=== PATIENT | male | born 1965 | race Caucasian/White ===

== ENCOUNTER 2024-03-21 20:13 | Emergency (ER) | payer OTHER, SELFPAY ==
[2024-03-21 20:15] VITALS: BP 143/79
--- NOTE | 2024-03-21 21:07 | ED.GENMED ---
History of Present Illness
General
Chief Complaint: Musculo-Skeletal Complaint
Source: patient
Time Seen by Provider: 03/21/24 20:30
Travel History
Have you had any contact with someone who has COVID-19?: No
Do you have any symptoms of coronavirus? Fever > 100 degrees, chills, cough, shortness of breath, sore throat, loss of taste or smell, muscle aches, or headache?: No
History of Present Illness
History of Present Illness:
Appointment 58-year-old male presenting emergency department for evaluation of left heel pain that radiates towards the midfoot and worse with ambulation. No injuries were noted. Has not attempted anything for pain. Denies any previous concerns.
Past History
Past History
ED Past Medical History: CAD, HTN, Hypercholesterolemia, [place], Seizures and Psychiatric
ED Past Surgical History: Cardiac ([place] 08/2019, Stent)
Patient has exhibited threatening behavior?: No
PSI?: No
Social History
Tobacco: Non-smoker
Alcohol: None
Drug: None
Personal: Single
Living: alone
Employment: Employed (Teacher)
Review of Systems
Review of Systems
All Other Systems: ROS reviewed and negative except as documented in HPI and ROS
Phy Exam
Physical Exam
Physical Exam:
GENERAL: Alert , in no apparent distress
EYE: conjunctiva clear
Head: Normocephalic atraumatic
NECK: Supple,
ENT: mmm.
LUNGS: no acute respiratory distress
NEUROLOGICAL: Alert and oriented
SKIN: Warm and dry, skin intact.
MUSCULOSKELETAL: Left foot/ankle: No obvious deformity, erythema, edema, ecchymosis, abrasions or lacerations. Mild tenderness over the plantar surface of the distal calcaneus extending towards the midfoot. Extremities otherwise warm and
well-perfused.
PSYCH: Normal and appropriate interaction.
Scores
Heart Failure Risk
Heart Failure Risk Score: Not Applicable
Heart Score for Chest Pain Patients
STEMI patient?: Not applicable
Withdrawal Assessment of Alcohol
Withdrawal Assessment Completed?: Not applicable
Course
Orders/Labs/Results
Orders:
Orders
03/21/24 20:18
CR Heel/os Calcis - Left 2 Vw* Urgent
Comment:
Reason For Exam: pain
Foot, Left 3 View [CR Foot - Left Min 3 Views] Urgent
Comment:
Reason For Exam: pain
Vital Signs
Initial and Last Documented VS:
Initial Vital Signs
Temp Pulse Resp BP Pulse Ox
98.1 F 68 18 143/79 97
03/21/24 20:15 03/21/24 20:15 03/21/24 20:15 03/21/24 20:15 03/21/24 20:15
Last Documented Vital Signs
Temp Pulse Resp BP Pulse Ox
98.1 F 68 18 143/79 97
03/21/24 20:15 03/21/24 20:15 03/21/24 20:15 03/21/24 20:15 03/21/24 20:15
MDM/Problems Addressed
Differential Diagnosis Includes:
Plantar fasciitis, osteoarthritis, less concern for fracture
MDM/Problems Addressed:
58-year-old male presenting to the emergency department for evaluation of atraumatic left foot pain x 2 weeks. Symptoms seem to be most suggestive of plantar fasciitis or tendinopathy. X-rays were ordered from triage and shows mild degenerative
changes but no acute fracture. Offered crutches but patient declines. Ice and elevation and information for orthopedics were provided. Stable for discharge home.
*Radiology
Radiology exam reviewed: preliminary read by ED provider (No acute fracture)
*Pulse Oximetry
Patient hypoxic: no
*Critical Care Note
Total Time (30-74mins, 75-104mins- exclusive of procedures): Not Applicable
ED Attending Note
-
Portions of this chart may have been created with voice recognition software.� Occasional wrong word or��sound alike� substitutions may have occurred due to the inherent limitations of voice recognition software.
Discharge Plan
Departure
Patient Disposition: Home (Routine Discharge)
Date of Disposition: 03/21/24
Time of Disposition: 21:07
Patient with high blood pressure during this ER visit?: Yes
Discharge Problem:
Foot pain, left
Instructions: Plantar fasciitis
Prescriptions:
No Action
rabeprazole [AcipHex] 20 MG tablet,delayed release (DR/EC)
20 mg PO DAILY Qty: 30 0RF
mupirocin 2 % ointment
1 applic topical TID Qty: 15 0RF
hydrocortisone 2.5 % cream
1 applic topical TID Qty: 20 0RF
atorvastatin 20 mg Tablet
20 mg PO DAILY
metoprolol succinate 50 mg Tablet Extended Release 24 Hr
50 mg PO DAILY
aspirin [Aspir-81] 81 mg Tablet,Delayed Release (Dr/Ec)
81 mg PO DAILY
Briviact 50 mg Tablet
50 mg PO BID
Briviact 50 mg tablet
50 mg PO BID Qty: 30 1RF
cyclobenzaprine 10 mg tablet
10 mg PO TID PRN (Reason: muscle spasm) Qty: 10 0RF
ibuprofen 600 mg tablet
600 mg PO TID PRN (Reason: Pain) Qty: 10 0RF
Referrals:
Karina Sinclair CRNP [Family Provider] -
Jose Miguel Shah MD [Active] - (Ortho)
Discharge Date and Time
Print Language: CONGOLESE
== END 2024-03-21 21:45 | disposition home or self-care (01) ==
LOC: EMR 20:13
PROVIDERS: EMERGENCY PHYSICIAN Emergency Medicine; FAMILY PHYSICIAN Nurse Practitioner
DX: M79.672 Pain in left foot (principal); I25.10 Atherosclerotic heart disease of native coronary artery without angina pectoris; I10 Essential (primary) hypertension; E78.00 Pure hypercholesterolemia, unspecified; I25.2 Old myocardial infarction; G40.909 Epilepsy, unspecified, not intractable, without status epilepticus; Z95.5 Presence of coronary angioplasty implant and graft
CPT/HCPCS: 99283; 73630; 73650

== ENCOUNTER 2024-07-11 17:25 | Emergency (ER) | payer OTHER, SELFPAY ==
[2024-07-11 17:27] VITALS: BP 159/84
--- NOTE | 2024-07-11 18:52 | ED.MUSCINJ ---
HPI-Injury
General
Chief Complaint: Musculo-Skeletal Complaint
Source: patient
Exam Limitations: none
Time Seen by Provider: 07/11/24 18:40
History of Present Illness-Injury
Initial Injury comments:
59-year-old male presents complaining significant left heel pain. This started about 2 weeks ago was getting a little better with stretches and ibuprofen however today he woke up in significant pain and has not eased off thickly throughout the day
the pain does ease off after the first several steps. He was seen at [facility] x-rays were taken and he was noted to have a bone spur. No known injury. No fevers. The ibuprofen he was prescribed 2 weeks ago was helping somewhat but he
ran out.
Past History
Past History
ED Past Medical History: CAD, HTN, Hypercholesterolemia, [place], Seizures and Psychiatric
ED Past Surgical History: Cardiac ([place] 08/2019, Stent)
Patient has exhibited threatening behavior?: No
PSI?: No
Social History
Tobacco: Non-smoker
Alcohol: None
Drug: None
Personal: Single
Living: alone
Employment: Employed (Teacher)
Phy Exam
Physical Exam
Physical Exam:
General: Well-appearing male no acute respiratory distress
HEENT: Normocephalic atraumatic
Musculoskeletal exam: Left heel tender over the plantar surface of the heel. The posterior aspect of the heel is nontender. Ball the foot is nontender.
Extremities: No cyanosis
Vascular: 2+ dorsalis pedis pulse left foot skin is intact without erythema or swelling
Injury Course
Orders/Labs/Results
Orders:
Orders
07/11/24 18:49
Ortho Boot Left- Treatment ONCE
Short or tall?: Tall
MDM/Problems Addressed
Differential Diagnosis Includes:
Left heel discomfort. X-rays taken at another facility 2 weeks ago consider repeat x-rays today but not indicated given no new trauma. No signs of infectious source. Consider tendinitis versus plantar fasciitis. Will place patient in a boot as
symptoms are not improving with conservative treatment otherwise. Recommend follow-up with foot and ankle specialist. Will also prescribe a round of steroids
*Critical Care Note
Total Time (30-74mins, 75-104mins- exclusive of procedures): Not Applicable
ED Attending Note
-
Portions of this chart may have been created with voice recognition software.� Occasional wrong word or��sound alike� substitutions may have occurred due to the inherent limitations of voice recognition software.
Discharge Plan
Departure
Patient Disposition: Home (Routine Discharge)
Date of Disposition: 07/11/24
Time of Disposition: 18:57
Patient with high blood pressure during this ER visit?: No
Discharge Problem:
Heel pain
Instructions: Muscle and Bone Pain (DC)
Prescriptions:
New
prednisone 10 mg Tablet
See Rx Instructions .ROUTE .COMPLEX Qty: 30 0RF
Rx Instructions:
Take By Mouth:
40 mg daily x3 days, 30 mg daily x3 days,
20 mg daily x3 days, 10 mg daily x3 days.
No Action
rabeprazole [AcipHex] 20 MG tablet,delayed release (DR/EC)
20 mg PO DAILY Qty: 30 0RF
mupirocin 2 % ointment
1 applic topical TID Qty: 15 0RF
hydrocortisone 2.5 % cream
1 applic topical TID Qty: 20 0RF
atorvastatin 20 mg Tablet
20 mg PO DAILY
metoprolol succinate 50 mg Tablet Extended Release 24 Hr
50 mg PO DAILY
aspirin [Aspir-81] 81 mg Tablet,Delayed Release (Dr/Ec)
81 mg PO DAILY
Briviact 50 mg Tablet
50 mg PO BID
Briviact 50 mg tablet
50 mg PO BID Qty: 30 1RF
cyclobenzaprine 10 mg tablet
10 mg PO TID PRN (Reason: muscle spasm) Qty: 10 0RF
ibuprofen 600 mg tablet
600 mg PO TID PRN (Reason: Pain) Qty: 10 0RF
Referrals:
Karina Sinclair CRNP [Family Provider] -
Activity Restrictions/Additional Instructions:
Rest in the boot. Use prednisone as directed. Follow-up with your foot and ankle specialist. Return if worse otherwise
Interventions
Interventions:
*General Assessment Last Done: 07/11/24 17:27
Discharge Date and Time
Print Language: POLISH
== END 2024-07-11 19:38 | disposition home or self-care (01) ==
LOC: EMR 17:25
PROVIDERS: EMERGENCY PHYSICIAN Emergency Medicine; FAMILY PHYSICIAN Nurse Practitioner
DX: M79.672 Pain in left foot (principal); I25.10 Atherosclerotic heart disease of native coronary artery without angina pectoris; I10 Essential (primary) hypertension; E78.00 Pure hypercholesterolemia, unspecified; I25.2 Old myocardial infarction; Z95.5 Presence of coronary angioplasty implant and graft
CPT/HCPCS: 99282

== ENCOUNTER 2024-07-30 14:34 | Emergency (ER) | payer OTHER, SELFPAY ==
[2024-07-30 14:37] VITALS: BP 163/84
--- NOTE | 2024-07-30 14:45 | ED.GENMED ---
ED Provider Triage
<IRA Hunter - Last Filed: 07/30/24 14:48>
-
Patient seen by provider in Triage?: Seen in Triage
Attestation: A medical screening examination has been initiated by a qualified medical provider. Based on the assessment performed at this time, it has been determined that an emergent medical condition may exist and the patient has been informed
that further medical evaluation and possible additional diagnostic testing may be needed.
HPI:
59-year-old male who presents to the ER for evaluation of cold symptoms. Patient started with cold symptoms last week including cough, has lost his voice. Symptoms are not improving. He feels Mildly short of breath . Called pcp who recommended
he come to the ED.
GENERAL: Alert , in no apparent distress
EYE: No visual abnormalities.
NECK: Trachea midline
ENT: No visible abnormalities.
LUNGS: No acute respiratory distress
NEUROLOGICAL: Alert and oriented
SKIN: Skin intact. No visible changes.
MUSCULOSKELETAL: Moving extremities normally
PSYCH: Normal and appropriate interaction.
This is a medical evaluation conducted in person to initiate diagnostic evaluation and provide initial therapeutics. Please see further documentation by the treating clinician.
History of Present Illness
<IRA Hunter - Last Filed: 07/30/24 14:48>
General
Chief Complaint: Cold/Flu/URI Symptoms
Time Seen by Provider: 07/30/24 15:54
<Hi Aguilera PA-C - Last Filed: 07/30/24 16:16>
General
Source: patient
History of Present Illness
History of Present Illness:
59-year-old male with past medical history of seizure disorder, asthma, CAD, hypertension, hyperlipidemia presenting to the emergency department for evaluation of a cough, cold-like symptoms and shortness of breath that began on Saturday, gradually
worsening today with patient attempting to follow-up with primary care provider was recommended to come to the ER instead his PCP could not get patient in for an appointment. Patient denies any fevers, chills, rigors, chest pain, palpitations,
diaphoresis, exertional dyspnea orthopnea. Does note a recent admission at [facility] for a seizure. No known sick contacts, recent travel or recent antibiotics. Patient does note he has been using his inhaler as needed for wheezing/shortness of
breath.
Past History
<IRA Hunter - Last Filed: 07/30/24 14:48>
Past History
ED Past Medical History: CAD, HTN, Hypercholesterolemia, [place], Seizures and Psychiatric
ED Past Surgical History: Cardiac ([place] 08/2019, Stent)
Patient has exhibited threatening behavior?: No
PSI?: No
Social History
Tobacco: Non-smoker
Alcohol: None
Drug: None
Personal: Single
Living: alone
Employment: Employed (Teacher)
Review of Systems
<Hi Aguilera PA-C - Last Filed: 07/30/24 16:16>
Review of Systems
All Other Systems: ROS reviewed and negative except as documented in HPI and ROS
Phy Exam
<Hi Aguilera PA-C - Last Filed: 07/30/24 16:16>
Physical Exam
Physical Exam:
GENERAL: Alert , in no apparent distress, very hoarse voice, intermittent dry cough noted
EYE: conjunctiva clear
NECK: Supple
ENT: o/p clr, mmm.
CARDIAC: Regular rate and rhythm
LUNGS: Clear breath sounds bilaterally, no acute respiratory distress, no wheezes/rales/rhonchi
NEUROLOGICAL: Alert and oriented
SKIN: Warm and dry, skin intact.
MUSCULOSKELETAL: well perfused.
PSYCH: Normal and appropriate interaction.
Scores
<Hi Aguilera PA-C - Last Filed: 07/30/24 16:16>
Heart Failure Risk
Heart Failure Risk Score: Not Applicable
Heart Score for Chest Pain Patients
STEMI patient?: Not applicable
Withdrawal Assessment of Alcohol
Withdrawal Assessment Completed?: Not applicable
Course
<IRA Hunter - Last Filed: 07/30/24 14:48>
Orders/Labs/Results
Orders:
Orders
07/30/24 14:40
Electrocardiogram (*1) Urgent
Reason for Study: Shortness of Breath
CXR2 [CR Chest - 2 Views ] Urgent
Comment:
Reason For Exam: sob
07/30/24 14:41
EKG- Treatment ONCE
07/30/24 14:45
COVID-19 Antigen Urgent
Source: Nasal Swab
Complete Blood Count/With Diff Urgent
Lactic Acid Urgent
NT-proBNP Urgent
Influenza A+B Rapid Molecular Urgent
YENNI Source: Nasal Swab
Specimen Description:
07/30/24 14:46
Comprehensive Metabolic Panel Urgent
Abnormal Lab Results
07/30/24 07/30/24
14:45 14:46
WBC 11.7 H 10^3/uL
(4.8-10.8)
Plt Count 129 L 10^3/uL
(130-400)
MPV 12.6 H fL
(7.4-10.4)
Abs Immat Gran (auto) 0.1 H 10^3/uL
(0-0.05)
Absolute Neuts (auto) 7.7 H 10^3/uL
(1.4-6.5)
Absolute Monos (auto) 1.2 H 10^3/uL
(0.1-0.6)
Lymphocytes % 19.0 L %
(20.5-51.1)
Monocytes % 10.0 H %
(1.7-9.3)
Sodium 133 L mmol/L
(135-145)
Chloride 95 L mmol/L
(98-107)
07/30/24 14:45
07/30/24 14:46
Vital Signs
Initial and Last Documented VS:
Initial Vital Signs
Temp Pulse Resp BP Pulse Ox
98.0 F 64 16 163/84 98
07/30/24 14:37 07/30/24 14:37 07/30/24 14:37 07/30/24 14:37 07/30/24 14:37
Last Documented Vital Signs
Temp Pulse Resp BP Pulse Ox
98.0 F 78 22 145/88 98
07/30/24 14:37 07/30/24 16:09 07/30/24 16:09 07/30/24 16:09 07/30/24 16:09
<Hi Aguilera PA-C - Last Filed: 07/30/24 16:16>
Orders/Labs/Results
Orders:
Orders
07/30/24 14:40
Electrocardiogram (*1) Urgent
Reason for Study: Shortness of Breath
CXR2 [CR Chest - 2 Views ] Urgent
Comment:
Reason For Exam: sob
07/30/24 14:41
EKG- Treatment ONCE
07/30/24 14:45
COVID-19 Antigen Urgent
Source: Nasal Swab
Complete Blood Count/With Diff Urgent
Lactic Acid Urgent
NT-proBNP Urgent
Influenza A+B Rapid Molecular Urgent
YENNI Source: Nasal Swab
Specimen Description:
07/30/24 14:46
Comprehensive Metabolic Panel Urgent
Abnormal Lab Results
07/30/24 07/30/24
14:45 14:46
WBC 11.7 H 10^3/uL
(4.8-10.8)
Plt Count 129 L 10^3/uL
(130-400)
MPV 12.6 H fL
(7.4-10.4)
Abs Immat Gran (auto) 0.1 H 10^3/uL
(0-0.05)
Absolute Neuts (auto) 7.7 H 10^3/uL
(1.4-6.5)
Absolute Monos (auto) 1.2 H 10^3/uL
(0.1-0.6)
Lymphocytes % 19.0 L %
(20.5-51.1)
Monocytes % 10.0 H %
(1.7-9.3)
Sodium 133 L mmol/L
(135-145)
Chloride 95 L mmol/L
(98-107)
07/30/24 14:45
07/30/24 14:46
Vital Signs
Initial and Last Documented VS:
Initial Vital Signs
Temp Pulse Resp BP Pulse Ox
98.0 F 64 16 163/84 98
07/30/24 14:37 07/30/24 14:37 07/30/24 14:37 07/30/24 14:37 07/30/24 14:37
Last Documented Vital Signs
Temp Pulse Resp BP Pulse Ox
98.0 F 78 22 145/88 98
07/30/24 14:37 07/30/24 16:09 07/30/24 16:09 07/30/24 16:09 07/30/24 16:09
<Hi Aguilera PA-C - Last Filed: 07/30/24 16:16>
MDM/Problems Addressed
Differential Diagnosis Includes:
COVID, flu, pneumonia, asthma, bronchitis
MDM/Problems Addressed:
59-year-old male presenting emergency department for evaluation of URI-like symptoms, cough and mild shortness of breath. Attempted to see primary care provider but was unable to be seen so recommended to come to the ER for further evaluation.
Patient is without fevers. No evidence for hypoxia and patient is not in any acute respiratory distress. Labs, COVID/flu and chest x-ray ordered in triage. Patient's workup does reveal a mild leukocytosis but otherwise unremarkable testing.
Chest x-ray unremarkable. At this time I do feel patient is stable for discharge home and outpatient management. Will prescribe doxycycline given penicillin allergy and 5-day course of prednisone. Patient aware of return precautions but otherwise
stable for discharge home
<Hi Aguilera PA-C - Last Filed: 07/30/24 16:16>
*Radiology
Radiology exam reviewed: preliminary read by ED provider (Normal chest x-ray)
*Pulse Oximetry
Patient hypoxic: no
*Critical Care Note
Total Time (30-74mins, 75-104mins- exclusive of procedures): Not Applicable
ED Attending Note
<IRA Hunter - Last Filed: 07/30/24 14:48>
-
Portions of this chart may have been created with voice recognition software.� Occasional wrong word or��sound alike� substitutions may have occurred due to the inherent limitations of voice recognition software.
Discharge Plan
Departure
Patient Disposition: Home (Routine Discharge)
Date of Disposition: 07/30/24
Time of Disposition: 16:02
Patient with high blood pressure during this ER visit?: No
Discharge Problem:
Cough
Instructions: Cough, Adult ED
Prescriptions:
New
doxycycline hyclate 100 mg tablet
100 mg PO BID 10 Days Qty: 20 0RF
prednisone 50 mg tablet
50 mg PO DAILY Qty: 5 0RF
No Action
rabeprazole [AcipHex] 20 MG tablet,delayed release (DR/EC)
20 mg PO DAILY Qty: 30 0RF
mupirocin 2 % ointment
1 applic topical TID Qty: 15 0RF
hydrocortisone 2.5 % cream
1 applic topical TID Qty: 20 0RF
atorvastatin 20 mg Tablet
20 mg PO DAILY
metoprolol succinate 50 mg Tablet Extended Release 24 Hr
50 mg PO DAILY
aspirin [Aspir-81] 81 mg Tablet,Delayed Release (Dr/Ec)
81 mg PO DAILY
Briviact 50 mg Tablet
50 mg PO BID
Briviact 50 mg tablet
50 mg PO BID Qty: 30 1RF
cyclobenzaprine 10 mg tablet
10 mg PO TID PRN (Reason: muscle spasm) Qty: 10 0RF
ibuprofen 600 mg tablet
600 mg PO TID PRN (Reason: Pain) Qty: 10 0RF
prednisone 10 mg Tablet
See Rx Instructions .ROUTE .COMPLEX Qty: 30 0RF
Rx Instructions:
Take By Mouth:
40 mg daily x3 days, 30 mg daily x3 days,
20 mg daily x3 days, 10 mg daily x3 days.
Referrals:
Karina Sinclair CRNP [Family Provider] -
Interventions
Interventions:
*Risk Screen - Suicide Last Done: 07/30/24 14:37
*Neglect/Abuse Screening Last Done: 07/30/24 14:37
*Nursing Disposition Last Done: 07/30/24 16:10
ED- Pulmonary Assessment Last Done: 07/30/24 16:00
Discharge Date and Time
Discharge Date/Time: 07/30/24 16:11
Print Language: LIBYAN
[2024-07-30 14:55] LABS: % Basophils 0.5 % (0-2); % Eosinophils 4.1 % (0-6); % Immature Granulocytes 0.5 % (0-0.5); % Neutrophils 65.9 % (42.2-75.2); Absolute Basophils 0.1 10^3/uL (0-0.2); Absolute Eosinophils 0.5 10^3/uL (0-0.7); Absolute Immature Granulocytes 0.1 10^3/uL (0-0.05); Absolute Lymphocytes 2.2 10^3/uL (1.2-3.4); Absolute Monocytes 1.2 10^3/uL (0.1-0.6); Absolute Neutrophils 7.7 10^3/uL (1.4-6.5); Hematocrit 44.8 % (39.0-52.0); Hemoglobin 15.9 g/dL (13.0-18.0); Mean Corp Hgb Conc. 35.5 g/dL (33.0-37.0); Mean Corpuscular Hgb 30.2 pg (27.0-31.0); Mean Platelet Volume 12.6 fL (7.4-10.4); Nucleated Red Blood Cells % 0 % (-); Platelet Count 129 10^3/uL (130-400); Red Blood Cell Count 5.27 10^6/uL (4.70-6.10); Red Cell Dist. Width 13.5 % (11.5-14.5); White Blood Cell Count 11.7 10^3/uL (4.8-10.8)
[2024-07-30 15:12] LABS: ALT (SGPT) 41 U/L (0-50); AST (SGOT) 30 U/L (17-59); Albumin 4.3 g/dl (3.5-5.0); Alkaline Phosphatase 89 U/L (38-126); Blood Urea Nitrogen 15 mg/dl (9-20); Calcium 9.1 mg/dl (8.4-10.2); Carbon Dioxide 29 mmol/L (22-30); Chloride 95 mmol/L (98-107); Glucose 95 mg/dl (70-99); Potassium 4.6 mmol/L (3.5-5.1); Sodium 133 mmol/L (135-145); Total Bilirubin 0.4 mg/dl (0.2-1.3); Total Protein 6.9 g/dl (6.3-8.2); eGFR > 60.00
[2024-07-30 15:19] LABS: NT-proBNP 151 pg/ml
[2024-07-30 15:39] LABS: COVID-19 Antigen Negative (Negative)
[2024-07-30 15:53] LABS: Lactic Acid 1.8 mmol/L (0.7-2.0)
[2024-07-30 16:09] VITALS: BP 145/88
== END 2024-07-30 16:11 | disposition home or self-care (01) ==
LOC: EMR 14:34
PROVIDERS: Emergency Medicine; EMERGENCY PHYSICIAN Emergency Medicine; FAMILY PHYSICIAN Nurse Practitioner
DX: R05.9 Cough, unspecified (principal); E78.00 Pure hypercholesterolemia, unspecified; I10 Essential (primary) hypertension; I25.10 Atherosclerotic heart disease of native coronary artery without angina pectoris; I25.2 Old myocardial infarction; Z95.5 Presence of coronary angioplasty implant and graft
CPT/HCPCS: 99283; 71046; 80053; 83605; 83880; 85025; 87502; 87811; 93005

== ENCOUNTER → 2024-11-24 16:30 | Outpatient (REF) | payer OTHER, SELFPAY | LOC: RAD 16:30 | PROVIDERS: ATTENDING PHYSICIAN Nurse Practitioner | DX: J40 Bronchitis, not specified as acute or chronic (principal) | CPT/HCPCS: 71046 ==

== ENCOUNTER 2025-01-03 21:25 | Inpatient (IN) | payer OTHER, SELFPAY ==
[2025-01-03 14:46] VITALS: BP 129/88
[2025-01-03 15:06] LABS: % Basophils 0.3 % (0-2); % Immature Granulocytes 0.5 % (0-0.5); % Lymphocytes 6.9 % (20.5-51.1); % Neutrophils 84.3 % (42.2-75.2); Absolute Basophils 0.1 10^3/uL (0-0.2); Absolute Eosinophils 0.2 10^3/uL (0-0.7); Absolute Immature Granulocytes 0.1 10^3/uL (0-0.05); Absolute Lymphocytes 1.3 10^3/uL (1.2-3.4); Absolute Monocytes 1.4 10^3/uL (0.1-0.6); Absolute Neutrophils 16.1 10^3/uL (1.4-6.5); Hematocrit 43.2 % (39.0-52.0); Hemoglobin 15.1 g/dL (13.0-18.0); Mean Corpuscular Hgb 29.9 pg (27.0-31.0); Mean Corpuscular Volume 85.5 fL (80.0-94.0); Mean Platelet Volume 11.9 fL (7.4-10.4); Nucleated Red Blood Cells % 0 % (-); Platelet Count 152 10^3/uL (130-400); Red Blood Cell Count 5.05 10^6/uL (4.70-6.10); Red Cell Dist. Width 13.6 % (11.5-14.5); White Blood Cell Count 19.2 10^3/uL (4.8-10.8)
[2025-01-03 15:09] LABS: Urine Albumin Negative (Neg - Trace); Urine Bilirubin Negative (Negative); Urine Character Clear (Clear); Urine Color Yellow; Urine Glucose Negative (Negative); Urine Ketone 2+ (Negative); Urine Leukocyte 3+ (Negative); Urine Nitrite Positive (Negative); Urine Occult Blood 3+ (Negative); Urine Specific Gravity 1.015 (<1.030); Urine Urobilinogen Negative (Neg - 1+)
[2025-01-03 15:18] LABS: Lactic Acid 1.7 mmol/L (0.7-2.0)
[2025-01-03 15:19] LABS: ALT (SGPT) 30 U/L (0-50); AST (SGOT) 25 U/L (17-59); Albumin 4.1 g/dl (3.5-5.0); Alkaline Phosphatase 96 U/L (38-126); Blood Urea Nitrogen 16 mg/dl (9-20); Calcium 9.1 mg/dl (8.4-10.2); Carbon Dioxide 25 mmol/L (22-30); Chloride 98 mmol/L (98-107); Glucose 133 mg/dl (70-99); Potassium 4.3 mmol/L (3.5-5.1); Sodium 131 mmol/L (135-145); Total Bilirubin 0.6 mg/dl (0.2-1.3); Urine Squamous Cell 0-2 /LPF (Few); eGFR > 60.00
[2025-01-03 15:20] LABS: Urine Bacteria Many (Negative); Urine White Cell 80-90 /HPF (0-5)
[2025-01-03 15:46] VITALS: BMI 33.9
[2025-01-03 16:00] VITALS: BP 123/71
[2025-01-03] MEDS: TORADOL 15 MG IV (16:12)
[2025-01-03] MEDS: TYLENOL 1000 MG PO (16:12)
[2025-01-03] MEDS: NSS 1000 IV ×2 (16:13→23:07)
[2025-01-03 16:25] LABS: Lactic Acid 1.3 mmol/L (0.7-2.0)
--- NOTE | 2025-01-03 17:38 | ED.GENMED ---
History of Present Illness
<Valentina Mccarthy DO - Last Filed: 01/03/25 17:42>
General
Chief Complaint: Urinary Symptoms
Time Seen by Provider: 01/03/25 15:25
History of Present Illness
History of Present Illness:
59-year-old male with history of hyperlipidemia and hypertension presenting to the emergency department for concern of urinary tract infection. Patient reports about 2 weeks ago he had dysuria and bodyaches, was diagnosed with a urinary infection.
He was given ciprofloxacin and notes that this symptoms overall improved. He did follow-up with urology who noted that his symptoms worsened or returned, to come to the hospital. Yesterday, patient notes that he was generally feeling unwell and
then today started to have body aches, dysuria, abdominal discomfort, lower back pain. Prior to 2 weeks ago, denies any history of UTI. Denies nausea or vomiting. Denies changes in stool. Denies any abdominal surgeries in the past. Denies
additional acute medical complaints
Past History
<Valentina Mccarthy DO - Last Filed: 01/03/25 17:42>
Past History
ED Past Medical History: CAD, HTN, Hypercholesterolemia, CT, Seizures and Psychiatric
ED Past Surgical History: Cardiac (CT 08/2019, Stent)
Patient has exhibited threatening behavior?: No
PSI?: No
Social History
Tobacco: Non-smoker
Alcohol: None
Drug: None
Personal: Single
Living: alone
Employment: Employed (Teacher)
Phy Exam
<Valentina Mccarthy DO - Last Filed: 01/03/25 17:42>
Physical Exam
Physical Exam:
General: Well-appearing, no clinical signs of dehydration, nontoxic and in no acute distress
HEENT: protecting airway
Neck: appears supple
CV: Tachycardic, regular rhythm, no evidence of cyanosis
Resp: No accessory muscle use, no increased work of breathing, lungs clear to auscultation bilaterally
Abd: Soft and non-distended, mild generalized tenderness, no rebound or guarding. Mild tenderness to the right thoracic back without CVA tenderness
Extremities: No deformities, no swelling
Neuro: alert, no focal neurologic deficit
: deferred
Rectal: deferred
Psych: Normal affect
Skin: Intact
Course
<Valentina Mccarthy, DO - Last Filed: 01/03/25 17:42>
Orders/Labs/Results
Orders:
Orders
01/03/25 14:55
Complete Blood Count/With Diff Urgent
Comprehensive Metabolic Panel Urgent
Lactic Acid Q4H
Comment: ON ICE, CANCEL 2ND ORDER IF FIRST LACTIC ACID LEVEL <2
Lactic Acid Q4H
Comment: ON ICE, CANCEL 2ND ORDER IF FIRST LACTIC ACID LEVEL <2
Urinalysis Reflex To Culture Urgent
Date Specimen was Collected: 01/03/25
Time Specimen was Collected: 14:47
Urine Microscopic Reflex Cult Urgent
Blood Culture Q20M
YENNI Source: Blood/Venous
Specimen Description:
Comment: Urgent from separate sites. If patient screens positive for possible sepsis
Urine Culture Urgent
YENNI Source: U
Specimen Description:
Date Specimen was Collected: 01/03/25
Time Specimen was Collected: 14:47
01/03/25 15:47
CT Abd/pelvis W Iv Cont Urgent
Comment:
Reason For Exam: UTI w/ R flank pain, fever
0.9% Sodium Chloride 1000 ml [Nss] 1,000 ml IV BOLUS
Acetaminophen [Tylenol] 1,000 mg PO NOW STA
Ketorolac [Toradol] 15 mg IV NOW STA
01/03/25 16:00
Lactic Acid Q4H
Comment: CANCEL 2nd LACTIC ACID IF 1st LACTIC ACID IS LESS THAN 2
Blood Culture Q20M
YENNI Source: Blood/Venous
Specimen Description:
Comment: Urgent from separate sites. If patient screens positive for possible sepsis
01/03/25 17:38
Cefepime HCl [Maxipime] 2,000 mg IV NOW STA
01/03/25 17:43
Sterile Water [Sterile Water For Injection] 20 ml .ROUTE .STK-MED
Abnormal Lab Results
01/03/25
14:55
WBC 19.2 H 10^3/uL
(4.8-10.8)
MPV 11.9 H fL
(7.4-10.4)
Abs Immat Gran (auto) 0.1 H 10^3/uL
(0-0.05)
Absolute Neuts (auto) 16.1 H 10^3/uL
(1.4-6.5)
Absolute Monos (auto) 1.4 H 10^3/uL
(0.1-0.6)
Neutrophils % 84.3 H %
(42.2-75.2)
Lymphocytes % 6.9 L %
(20.5-51.1)
Sodium 131 L mmol/L
(135-145)
Glucose 133 H mg/dl
(70-99)
Urine Ketones 2+ A
(Negative)
Ur Occult Blood Reflex 3+ A
(Negative)
Urine Nitrite (Reflex) Positive A
(Negative)
Leukocyte Esterase Rfl 3+ A
(Negative)
Urine RBC 7-10 A /HPF
(0-2)
Urine WBC (Reflex) 80-90 A /HPF
(0-5)
Urine Bacteria (Reflex) Many A
(Negative)
01/03/25 14:55
01/03/25 14:55
Vital Signs
Initial and Last Documented VS:
Initial Vital Signs
Temp Pulse Resp BP Pulse Ox
101.8 F H 110 18 129/88 98
01/03/25 14:46 01/03/25 14:46 01/03/25 14:46 01/03/25 14:46 01/03/25 14:46
Last Documented Vital Signs
Temp Pulse Resp BP Pulse Ox
99.9 F 83 18 118/72 97
01/03/25 18:00 01/03/25 18:00 01/03/25 18:00 01/03/25 18:00 01/03/25 18:00
<Angel Belle MD - Last Filed: 01/03/25 19:46>
Orders/Labs/Results
Orders:
Orders
01/03/25 14:55
Complete Blood Count/With Diff Urgent
Comprehensive Metabolic Panel Urgent
Lactic Acid Q4H
Comment: ON ICE, CANCEL 2ND ORDER IF FIRST LACTIC ACID LEVEL <2
Lactic Acid Q4H
Comment: ON ICE, CANCEL 2ND ORDER IF FIRST LACTIC ACID LEVEL <2
Urinalysis Reflex To Culture Urgent
Date Specimen was Collected: 01/03/25
Time Specimen was Collected: 14:47
Urine Microscopic Reflex Cult Urgent
Blood Culture Q20M
YENNI Source: Blood/Venous
Specimen Description:
Comment: Urgent from separate sites. If patient screens positive for possible sepsis
Urine Culture Urgent
YENNI Source: U
Specimen Description:
Date Specimen was Collected: 01/03/25
Time Specimen was Collected: 14:47
01/03/25 15:47
CT Abd/pelvis W Iv Cont Urgent
Comment:
Reason For Exam: UTI w/ R flank pain, fever
0.9% Sodium Chloride 1000 ml [Nss] 1,000 ml IV BOLUS
Acetaminophen [Tylenol] 1,000 mg PO NOW STA
Ketorolac [Toradol] 15 mg IV NOW STA
01/03/25 16:00
Lactic Acid Q4H
Comment: CANCEL 2nd LACTIC ACID IF 1st LACTIC ACID IS LESS THAN 2
Blood Culture Q20M
YENNI Source: Blood/Venous
Specimen Description:
Comment: Urgent from separate sites. If patient screens positive for possible sepsis
01/03/25 17:38
Cefepime HCl [Maxipime] 2,000 mg IV NOW STA
01/03/25 17:43
Sterile Water [Sterile Water For Injection] 20 ml .ROUTE .STK-MED
Abnormal Lab Results
01/03/25
14:55
WBC 19.2 H 10^3/uL
(4.8-10.8)
MPV 11.9 H fL
(7.4-10.4)
Abs Immat Gran (auto) 0.1 H 10^3/uL
(0-0.05)
Absolute Neuts (auto) 16.1 H 10^3/uL
(1.4-6.5)
Absolute Monos (auto) 1.4 H 10^3/uL
(0.1-0.6)
Neutrophils % 84.3 H %
(42.2-75.2)
Lymphocytes % 6.9 L %
(20.5-51.1)
Sodium 131 L mmol/L
(135-145)
Glucose 133 H mg/dl
(70-99)
Urine Ketones 2+ A
(Negative)
Ur Occult Blood Reflex 3+ A
(Negative)
Urine Nitrite (Reflex) Positive A
(Negative)
Leukocyte Esterase Rfl 3+ A
(Negative)
Urine RBC 7-10 A /HPF
(0-2)
Urine WBC (Reflex) 80-90 A /HPF
(0-5)
Urine Bacteria (Reflex) Many A
(Negative)
01/03/25 14:55
01/03/25 14:55
Vital Signs
Initial and Last Documented VS:
Initial Vital Signs
Temp Pulse Resp BP Pulse Ox
101.8 F H 110 18 129/88 98
01/03/25 14:46 01/03/25 14:46 01/03/25 14:46 01/03/25 14:46 01/03/25 14:46
Last Documented Vital Signs
Temp Pulse Resp BP Pulse Ox
99.9 F 83 18 118/72 97
01/03/25 18:00 01/03/25 18:00 01/03/25 18:00 01/03/25 18:00 01/03/25 18:00
<Valentina Mccarthy DO - Last Filed: 01/03/25 17:42>
MDM/Problems Addressed
MDM/Problems Addressed:
59-year-old male with history of hypertension hyperlipidemia presenting to the emergency department for urinary complaints and chills. Vital signs on arrival significant for fever and tachycardia.
On exam patient is nontoxic, resting comfortably. Patient had laboratory analysis and urinalysis prior to my assessment, positive for UTI. Patient symptoms are consistent with UTI, and potentially pyelonephritis given fever on arrival and report
of right-sided back pain and generalized abdominal discomfort. Patient's labs also show leukocytosis. At this time patient is meeting SIRS criteria, and now sepsis with confirmed source of infection being urinary. Will add on lactic acid. Urine
culture sent. Will plan for CT imaging to evaluate for any sign of pyelonephritis. Tylenol and Toradol administered for therapeutics. Patient started on IV fluids
17:00 - Lactic acid within normal limits without concern for severe sepsis or septic shock. Blood pressure remained stable will continue fluids as clinically indicated. Kidney function within normal limits. Pending CT imaging
<Valentina Mccarthy DO - Last Filed: 01/03/25 17:42>
*Critical Care Note
Total Time (30-74mins, 75-104mins- exclusive of procedures): Not Applicable
<Angel Belle MD - Last Filed: 01/03/25 19:46>
Update Note
Update Note:
patient receieved in sign out pending CT scan
he presents with complicated UTI , possibly acute bacterial prostatitis
reports recent UTI - given cipro with overall improvement in symptoms
however returns today with fever to 101.8, low back pain, dysuria, some difficulty emptying bladder
WBC 19.2, urine is infected
CT without obstruction or abscess, enlarged prostate noted
given cefepime
will admit to hospitalist
ED Attending Note
<Valentina Mccarthy DO - Last Filed: 01/03/25 17:42>
-
Portions of this chart may have been created with voice recognition software.� Occasional wrong word or��sound alike� substitutions may have occurred due to the inherent limitations of voice recognition software.
Discharge Plan
Departure
Patient Disposition: Admit
Date of Disposition: 01/03/25
Time of Disposition: 19:45
Presentation/result/management discussed w/ accepting MD/DO: Hospitalist
Discharge Problem:
Complicated urinary tract infection
Prescriptions:
No Action
rabeprazole [AcipHex] 20 MG tablet,delayed release (DR/EC)
20 mg PO DAILY Qty: 30 0RF
mupirocin 2 % ointment
1 applic topical TID Qty: 15 0RF
hydrocortisone 2.5 % cream
1 applic topical TID Qty: 20 0RF
atorvastatin 20 mg Tablet
20 mg PO DAILY
metoprolol succinate 50 mg Tablet Extended Release 24 Hr
50 mg PO DAILY
aspirin [Aspir-81] 81 mg Tablet,Delayed Release (Dr/Ec)
81 mg PO DAILY
Briviact 50 mg Tablet
50 mg PO BID
Briviact 50 mg tablet
50 mg PO BID Qty: 30 1RF
cyclobenzaprine 10 mg tablet
10 mg PO TID PRN (Reason: muscle spasm) Qty: 10 0RF
ibuprofen 600 mg tablet
600 mg PO TID PRN (Reason: Pain) Qty: 10 0RF
prednisone 10 mg Tablet
See Rx Instructions .ROUTE .COMPLEX Qty: 30 0RF
Rx Instructions:
Take By Mouth:
40 mg daily x3 days, 30 mg daily x3 days,
20 mg daily x3 days, 10 mg daily x3 days.
doxycycline hyclate 100 mg tablet
100 mg PO BID 10 Days Qty: 20 0RF
prednisone 50 mg tablet
50 mg PO DAILY Qty: 5 0RF
Referrals:
Karina Sinclair CRNP [Family Provider] -
Interventions
Interventions:
*General Assessment Last Done: 01/03/25 15:47
*Neglect/Abuse Screening Last Done: 01/03/25 17:45
*ED- Fall Risk Assessment Last Done: 01/03/25 15:47
*ED COVID-19 Vaccine History Last Done: 01/03/25 15:47
ED-Male Genitourinary Assessment Last Done: 01/03/25 15:42
Discharge Date and Time
Print Language: UPPER SORBIAN
[2025-01-03] MEDS: MAXIPIME 2000 MG IV (17:46)
[2025-01-03 18:00] VITALS: BP 118/72
--- NOTE | 2025-01-03 19:59 | HPS.HSE ---
Addendum entered and electronically signed by Angel Owens DO 01/03/25 21:20:
Patient seen and examined independently. Agree with findings and plan as set forth by IRA Nuñez.
Patient is a 59y M with PMH significant for ASCVD, hypertension and seizure disorder who presents to ED complaining of urinary frequency, dysuria, flank pain and fevers. Patient was seen initially by his PCP about 2 weeks ago and treated with a
7 days course of ciprofloxacin. He noted that his symptoms improved while on that medication - but quickly recurred once he was off of it.
Ass:
UTI / Suspected Prostatitis
Constipation
ASCVD
Benign Hypertension
Seizure Disorder
Mild Asthma without Acute Exacerbation
Plan:
Admit for further evaluation and treatment.
Continue IV abx with cefepime for now.
Follow-up culture data and change if needed.
Change to oral agent once afebrile / clinically improved.
Will likely require 21 days of total treatment for prostatitis.
Check PSA. Continue tamsulosin.
Bowel regimen.
Continue usual home medications including antiepileptic meds, etc.
Original Note:
Family Physician
-
Family Physician: IRA Odell
Chief Complaint
-
Fever, chills, dysuria
History of Present Illness
67-year-old male states approximately 2 weeks ago he had dysuria with bodyaches and was diagnosed with urinary tract infection and given a 7-day course of ciprofloxacin. He states he has been having issues with his prostate for the past year having
a split stream stopping and going and dribbling. He was seen by Dr. Strange approximately 2 weeks ago in the office and told him he had a current UTI and was on a 7-day course of Cipro he states urology told him if he still has symptoms after
completing the antibiotic to go to the ER for evaluation. He did set him up for a cystoscopy on January 25 for evaluation of his bladder and prostate. The patient started last night with dysuria, frequency, flank pain/abdominal pain, fever and
chills. He came to the ER today for evaluation. He is lab work showing sepsis secondary to UTI along with possible bacterial prostatitis. Patient has past medical history of CAD/[place]/cardiac stent 08/2019 to LAD, HTN, HLD, seizures since age 16,
class I obesity, enlarged prostate.
Medical History
Past Medical History
Past Medical History: Reports Other
Additional Past Medical History:
CAD/[place]/cardiac stent 08/2019 to LAD
HTN
HLD
seizures since age 16
class I obesity
enlarged prostate.
Past Surgical History: Reports Other
Additional Past Surgical History:
Stent to LAD 08/25/2019
Cataract extraction with lens implant left eye
Sinus surgery 1990
Social History
Tobacco: Non-smoker
Alcohol: None
Drug: None
Personal: Single
Living: Alone
Employment: Employed
Family History
Family History: Other (Mother breast and ovarian cancer, father lung cancer)
Allergies / Home Medications
Allergies reflects when Allergies were last updated in [facility].
Home Medications with original date entered in [facility]
Allergy/Medication List:
Allergies
Allergy/AdvReac Type Severity Reaction Status Date / Time
codeine [Codeine] Allergy Hives Verified 07/30/24 14:40
iodine [Iodine] Allergy Hives Verified 07/30/24 14:40
Latex, Natural Rubber Allergy Rash Verified 07/30/24 14:40
oxycodone HCl [From Percocet] Allergy Unknown Verified 07/30/24 14:40
Penicillins Allergy Hives Verified 07/30/24 14:40
Sulfa (Sulfonamide Allergy Hives Verified 07/30/24 14:40
Antibiotics)
[Sulfa(Sulfonamide
Antibiotics)]
Home Medications
rabeprazole 20 mg tablet,delayed release (AcipHex) 20 mg PO DAILY ##30 05/17/20
aspirin 81 mg tablet,delayed release 81 mg PO DAILY 12/16/22
atorvastatin 20 mg tablet 40 mg PO HS 12/16/22
metoprolol succinate 50 mg tablet,extended release 24 hr 25 mg PO HS 12/16/22
prednisone 10 mg tablet See Rx Instructions .Route .COMPLEX #30 tabs 07/11/24
prednisone 50 mg tablet 50 mg PO DAILY #5 tabs 07/30/24
albuterol 90 mcg inhalation Q4HPRN PRN wheeezing sob 01/03/25
oxcarbazepine 300 mg tablet (Trileptal) 300 mg 01/03/25
tamsulosin 0.4 mg capsule (Flomax) 0.4 mg PO HS 01/03/25
Review of Systems
-
History Source: Patient
A 12 point ROS was completed and negative except as noted: Yes
Constitutional: Reports Fever and Chills
EENT: Denies Sore Throat or Runny Nose
Respiratory: Denies Cough or Trouble Breathing
Cardiac: Denies Chest Pain, Diaphoresis, Palpitations or Syncope
Abdomen/GI: Reports Abdominal Pain; Denies Nausea, Vomiting, Diarrhea, Constipated, Bloody Stools or Black Stools
: Reports Dysuria, Frequency, Flank Pain and Urgency; Denies Incontinence or Difficulty Voiding
Musculoskeletal: Denies Joint Pain or Muscle Stiffness
Skin: Denies Itching or Rash
Neurological: Denies Dizzy, Headache or Weakness
Endocrine: Reports No Symptoms
Hematologic/Lymphatic: Reports No Symptoms
Psych: Reports Calm
Physical Exam
Vital Signs
Vital Signs
Temp Pulse Resp BP Pulse Ox
99.9 F 83 18 118/72 97
01/03/25 18:00 01/03/25 18:00 01/03/25 18:00 01/03/25 18:00 01/03/25 18:00
Physical Exam
General: Comfortable, Conversant, Fever, Chills and Obese
HEENT: NormoCephalic, Anicteric, Moist mucous membranes, PERRLA, [place] Conjunctivae and No Ptosis
Respiratory: Clear; No Wheezes, Rales or Rhonchi
Cardiac: S1/S2 and Regular Rhythm; No Murmur, Rub or Gallop
Breast: Deferred by me
GI: Soft, Non Distended, Normal Bowel Sounds, Tender (Suprapubic area) and No Hepatosplenomegaly
Genito-urinary: Costovertebral angle tend (Bilateral flank)
Musculoskeletal: No Clubbing, No Cyanosis and No Edema
Skin: Warm and Dry; No Rash or Jaundice
Neuro: AO x 3, No Motor Deficits, Nonfocal/grossly intact, Cranial Nerves Intact and No Sensory Deficits; No Slurred Speech, Facial Droop, Tremors or Sedated
Psych: Calm
Laboratory Results
-
01/03/25 14:55
01/03/25 14:55
Laboratory Results
Lactic Acid Cancelled 01/03/25 20:00
Total Bilirubin 0.6 mg/dl (0.2-1.3) 01/03/25 14:55
AST 25 U/L (17-59) 01/03/25 14:55
ALT 30 U/L (0-50) 01/03/25 14:55
Alkaline Phosphatase 96 U/L (38-126) 01/03/25 14:55
Data Reviewed
-
CT Scan: Report Reviewed by me
Lab Data: Labs Reviewed by me
Impression/Plan
-
Impression/plan:
Admit to telemetry
#Sepsis secondary to UTI/mild enlargement prostate
Recent UTI 2 weeks ago completed course of ciprofloxacin
WBC 19.2 with left shift, 101.8F, HR 83, 118/72
Follow UA EXPORT ADMINISTRATOR
-Blood cultures x 2
-Tylenol as needed for fever
-IV Cefepime 2000 mg given in ER, IV cefepime 2 g every 12 hours
-IV Toradol 15 mg given in ER
-IV NSS 1 L given in ER
-Continue IV NSS 100 cc/h
-Continue Flomax 0.4 mg at bedtime patient was unaware this was prescribed 10 days ago when he was seen by urology
CT abdomen pelvis with IV contrast: Mild urinary bladder wall thickening compatible with UTI no pyelonephritis no evidence of obstructive uropathy
#Reported constipation
Will start MiraLAX 17 g daily, docusate and senna daily
#HTN�benign
-BP 118/72
-Continue metoprolol XL 25 mg at bedtime
#CAD/[place]/cardiac stent 08/2019 LAD
-Continue metoprolol XL 25 mg at bedtime, Lipitor 40 mg at bedtime, aspirin 81 mg in a.m.
2D echo 04/18/2020: EF 55-60%, normal LV S LVSF, mild MR, mild AR
#Epilepsy since age 16
Continue Trileptal 300 mg twice daily
#Exercise-induced asthma
Uses as needed albuterol 90 mcg inhaler
Class I obesity�BMI 33.9
Affects all aspects of care
Weight loss recommended
DVT prophylaxis
Subcu Lovenox
Full code
[2025-01-03] MEDS: TRILEPTAL 300 MG PO (21:11)
[2025-01-03] MEDS: LIPITOR 40 MG PO (21:11)
[2025-01-03] MEDS: TOPROL XL 25 MG PO (21:12)
[2025-01-03 21:13] VITALS: BP 138/70
[2025-01-03] MEDS: FLOMAX 0.4 MG PO (21:31)
[2025-01-03 22:36] VITALS: BMI 33.6
[2025-01-03 23:33] VITALS: BP 132/76
[2025-01-04 03:32] VITALS: BP 135/75
[2025-01-04] MEDS: STERILE WATER FOR INJECTION 10 ML IV ×2 (05:01→17:44)
[2025-01-04] MEDS: MAXIPIME 2000 MG IV ×2 (05:01→17:43)
[2025-01-04 06:41] LABS: % Basophils 0.5 % (0-2); % Eosinophils 2.5 % (0-6); % Immature Granulocytes 0.5 % (0-0.5); % Lymphocytes 13.3 % (20.5-51.1); % Monocytes 9.1 % (1.7-9.3); % Neutrophils 74.1 % (42.2-75.2); Absolute Basophils 0.1 10^3/uL (0-0.2); Absolute Eosinophils 0.3 10^3/uL (0-0.7); Absolute Immature Granulocytes 0.1 10^3/uL (0-0.05); Absolute Lymphocytes 1.5 10^3/uL (1.2-3.4); Absolute Neutrophils 8.1 10^3/uL (1.4-6.5); Hematocrit 38.6 % (39.0-52.0); Hemoglobin 13.5 g/dL (13.0-18.0); Mean Corpuscular Hgb 29.7 pg (27.0-31.0); Mean Corpuscular Volume 84.8 fL (80.0-94.0); Mean Platelet Volume 12.4 fL (7.4-10.4); Nucleated Red Blood Cells % 0 % (-); Platelet Count 117 10^3/uL (130-400); Red Blood Cell Count 4.55 10^6/uL (4.70-6.10); Red Cell Dist. Width 13.4 % (11.5-14.5); White Blood Cell Count 10.9 10^3/uL (4.8-10.8)
[2025-01-04 07:21] LABS: ALT (SGPT) 21 U/L (0-50); AST (SGOT) 20 U/L (17-59); Albumin 3.2 g/dl (3.5-5.0); Alkaline Phosphatase 78 U/L (38-126); Blood Urea Nitrogen 14 mg/dl (9-20); Calcium 8.2 mg/dl (8.4-10.2); Carbon Dioxide 20 mmol/L (22-30); Chloride 104 mmol/L (98-107); Estimated Creatinine Clearance 111 ml/min; Glucose 93 mg/dl (70-99); Potassium 3.9 mmol/L (3.5-5.1); Sodium 131 mmol/L (135-145); Total Bilirubin 0.8 mg/dl (0.2-1.3); Total Protein 5.6 g/dl (6.3-8.2); eGFR > 60.00
[2025-01-04 07:23] VITALS: BP 131/71
[2025-01-04 07:33] LABS: PSA, Total - Screen 9.58 ng/ml (0.0-4.0)
[2025-01-04] MEDS: ASPIR LOW (ENTERIC COATED) 81 MG PO (07:34)
[2025-01-04] MEDS: MIRALAX 17 GRAMS PO (07:34)
[2025-01-04] MEDS: SENOKOT-S 1 TABLET PO ×2 (07:34→19:39)
[2025-01-04] MEDS: TRILEPTAL 300 MG PO ×2 (07:34→19:39)
[2025-01-04] MEDS: NSS 1000 IV (08:24)
--- NOTE | 2025-01-04 10:53 | CM ---
Spoke with patient who stated that he lives alone in an apartment on the first floor no steps. He described himself as independent with his ADLs, personal care, dressing and bathing. 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 He drives
and can transport himself to and from work. He does his own shopping and can get to all medical appointments. He denied use of any DME. He has never had VN or been to a SNF.
Patient has a prescription plan and uses, [facility] [place] for all of his medications.
His PCP is, Karina ROTH.
Patient stated that he will go home when stable.
Plan: Case management will continue to follow and assist with discharge planning. Home when cleared.
[2025-01-04 11:03] VITALS: BP 143/78
--- NOTE | 2025-01-04 13:41 | W.PN.HOSP.TC ---
Addendum entered and electronically signed by Raad Brown DO 01/05/25 14:52:
Patient's hyponatremia was mild and stable, clinically insignificant.
Original Note:
Today's Communication/Plan
-
Assessment / Plan
Assessment / Plan
General: No Apparent Distress, Comfortable and Conversant
HEENT: NormoCephalic, Moist mucous membranes, Atraumatic
Respiratory: Clear and Non Labored Respirations
Cardiac: S1/S2 and Regular Rhythm; No Rub or Gallop
GI: Soft, Non Tender, Non Distended and Normal Bowel Sounds
Musculoskeletal: No Edema, no deformity
: NO Walters
Neuro: Awake, Alert, AO x 3 and Nonfocal/grossly intact
Psych: Calm and Intact Judgment/Insight
Mr. Lester is a 59-year-old male with a medical history of CAD ([place] with PCI to LAD 08/2019), hypertension, seizure disorder (since age 16), and enlarged prostate who presented with dysuria and suprapubic pain. Approximately 2 weeks ago he had
similar symptoms and was given a 7-day course of ciprofloxacin for UTI/possible prostatitis. His outpatient urologist told him that if his symptoms return he should go to the emergency department for further management. In the ED, he had a
significant leukocytosis of 19,000, was febrile with T 101.8 �F. UA showed significant pyuria and bacteriuria. Cultures were obtained. He was bolused 1 L of resuscitative fluids. He was started on broad-spectrum antibiotics with cefepime which
was appropriate for UTI coverage. He has been admitted for further evaluation and management of sepsis secondary to UTI with suspected prostatitis.
Sepsis secondary to UTI with suspected prostatitis:
-CT abdomen pelvis shows mild urinary bladder wall thickening
-Continue cefepime
-Urine cultures growing E. coli, follow-up sensitivities
-Patient's dysuria has resolved
-Once sensitivities result can discharge home to complete 21-day course of antibiotics for prostatitis
-Will need outpatient urology follow-up
-Continue tamsulosin
-Elevated PSA of little value considering acute infection
CAD:
-Chronic, stable
-Continue aspirin 81 mg and high intensity statin
-Metoprolol succinate 25 mg nightly
Seizure disorder:
-Since age 16, stable
-Continue home oxcarbazepine
CODE STATUS:
Anticipated Discharge: 24 - 48 hours
Subjective/Interval History
-
Date of Service: January 04, 2025
Patient was seen and examined at bedside this morning. No more dysuria this morning. Significantly improved leukocytosis. Urine culture growing E. coli.
Objective Data
-
Labs:
Laboratory Results
01/04/25
05:37
WBC 10.9 H
Hgb 13.5
Hct 38.6 L
Plt Count 117 L D
Sodium 131 L
Potassium 3.9
Chloride 104
Carbon Dioxide 20 L
BUN 14
Creatinine 0.8
Glucose 93
Calcium 8.2 L
Total Bilirubin 0.8
AST 20
ALT 21
Alkaline Phosphatase 78
Vital Signs:
Vital Signs
Temp Pulse Resp BP Pulse Ox
98.2 F 69 18 143/78 97
01/04/25 11:03 01/04/25 11:03 01/04/25 11:03 01/04/25 11:03 01/04/25 11:03
Review of Systems
-
History Source: Patient
All other systems: Reviewed and negative
Physical Exam
-
General: No Apparent Distress
[2025-01-04 15:58] VITALS: BP 146/89
[2025-01-04] MEDS: LOVENOX 40 MG SC (17:44)
[2025-01-04 19:00] VITALS: BP 124/77
[2025-01-04] MEDS: TOPROL XL 25 MG PO (21:13)
[2025-01-04] MEDS: FLOMAX 0.4 MG PO (21:13)
[2025-01-04] MEDS: LIPITOR 40 MG PO (21:13)
[2025-01-04] MEDS: ZOFRAN 4 MG IV (21:13)
[2025-01-04 23:00] VITALS: BP 114/61
[2025-01-05 03:00] VITALS: BP 124/65
[2025-01-05] MEDS: STERILE WATER FOR INJECTION 10 ML IV (04:57)
[2025-01-05] MEDS: MAXIPIME 2000 MG IV (04:57)
[2025-01-05 06:31] LABS: % Basophils 0.5 % (0-2); % Eosinophils 2.5 % (0-6); % Immature Granulocytes 0.4 % (0-0.5); % Lymphocytes 11.5 % (20.5-51.1); % Monocytes 8.4 % (1.7-9.3); % Neutrophils 76.7 % (42.2-75.2); Absolute Eosinophils 0.2 10^3/uL (0-0.7); Absolute Lymphocytes 0.9 10^3/uL (1.2-3.4); Absolute Monocytes 0.6 10^3/uL (0.1-0.6); Absolute Neutrophils 5.9 10^3/uL (1.4-6.5); Hematocrit 40.7 % (39.0-52.0); Hemoglobin 14.5 g/dL (13.0-18.0); Mean Corp Hgb Conc. 35.6 g/dL (33.0-37.0); Mean Corpuscular Hgb 29.7 pg (27.0-31.0); Mean Corpuscular Volume 83.2 fL (80.0-94.0); Mean Platelet Volume 11.9 fL (7.4-10.4); Nucleated Red Blood Cells % 0 % (-); Platelet Count 130 10^3/uL (130-400); Red Blood Cell Count 4.89 10^6/uL (4.70-6.10); Red Cell Dist. Width 13.4 % (11.5-14.5); White Blood Cell Count 7.7 10^3/uL (4.8-10.8)
[2025-01-05 06:49] LABS: ALT (SGPT) 21 U/L (0-50); AST (SGOT) 19 U/L (17-59); Albumin 3.7 g/dl (3.5-5.0); Alkaline Phosphatase 90 U/L (38-126); Blood Urea Nitrogen 9 mg/dl (9-20); Calcium 8.7 mg/dl (8.4-10.2); Carbon Dioxide 23 mmol/L (22-30); Chloride 103 mmol/L (98-107); Estimated Creatinine Clearance 99 ml/min; Glucose 100 mg/dl (70-99); Potassium 4.2 mmol/L (3.5-5.1); Sodium 133 mmol/L (135-145); Total Bilirubin 0.7 mg/dl (0.2-1.3); Total Protein 6.2 g/dl (6.3-8.2); eGFR > 60.00
[2025-01-05 07:12] VITALS: BP 123/67
[2025-01-05] MEDS: TRILEPTAL 300 MG PO (07:45)
[2025-01-05] MEDS: SENOKOT-S 1 TABLET PO (07:45)
[2025-01-05] MEDS: MIRALAX 17 GRAMS PO (07:45)
[2025-01-05] MEDS: ASPIR LOW (ENTERIC COATED) 81 MG PO (07:45)
[2025-01-05] MEDS: MYLICON 80 MG PO (10:27)
[2025-01-05 10:45] VITALS: BP 129/61
--- NOTE | 2025-01-05 12:15 | W.DCSUMMARY ---
Discharge Summary
Discharge Data
Date of Admission: 01/03/25
Date of Discharge: 01/05/25
-
Pending Results: No
Hospital Course
Mr. Lester is a 59-year-old male with a medical history of CAD ([place] with PCI to LAD 08/2019), hypertension, seizure disorder (since age 16), and enlarged prostate who presented with dysuria and suprapubic pain. Approximately 2 weeks ago he had
similar symptoms and was given a 7-day course of ciprofloxacin for UTI/possible prostatitis. His outpatient urologist told him that if his symptoms return he should go to the emergency department for further management. In the ED, he had a
significant leukocytosis of 19,000, was febrile with T 101.8 �F. UA showed significant pyuria and bacteriuria. Cultures were obtained. He was bolused 1 L of resuscitative fluids. He was started on broad-spectrum antibiotics with cefepime which
was appropriate for UTI coverage. CT imaging of his abdomen and pelvis showed mild urinary bladder wall thickening with no evidence of pyelonephritis. He was admitted for further evaluation and management of sepsis secondary to UTI with suspected
prostatitis.
His dysuria resolved within 12 hours of being started on antibiotics. His leukocytosis resolved within 24 hours. He remained afebrile after being started on antibiotics. His urine cultures grew E. coli sensitive to ciprofloxacin. EKG was
obtained which showed his QTc was within normal limits at 406 ms. He will be transitioned to oral ciprofloxacin to complete a 3-week course. He has good follow-up with his primary urologist and should make an appointment with him immediately after
hospital discharge for follow-up and ongoing management. His urinary hesitancy has resolved with treatment of his acute infection. He will be continued on his home dose of tamsulosin.
General: No Apparent Distress, Comfortable and Conversant
HEENT: NormoCephalic, Moist mucous membranes, Atraumatic
Respiratory: Clear and Non Labored Respirations
Cardiac: S1/S2 and Regular Rhythm; No Rub or Gallop
GI: Soft, minimal TTP suprapubic region, Non Distended and Normal Bowel Sounds
Musculoskeletal: No Edema, no deformity
: NO Walters
Neuro: Awake, Alert, AO x 3 and Nonfocal/grossly intact
Psych: Calm and Intact Judgment/Insight
Discharge Plan
-
Patient Disposition: Home (Routine Discharge)
Discharge Diagnosis/Procedures: Acute prostatitis and cystitis
Diet: No restrictions
Activity: No restrictions
Activity Restrictions/Additional Instructions:
Mr. Lester is a 59-year-old male with a medical history of CAD ([place] with PCI to LAD 08/2019), hypertension, seizure disorder (since age 16), and enlarged prostate who presented with dysuria and suprapubic pain. Approximately 2 weeks ago he had
similar symptoms and was given a 7-day course of ciprofloxacin for UTI/possible prostatitis. His outpatient urologist told him that if his symptoms return he should go to the emergency department for further management. In the ED, he had a
significant leukocytosis of 19,000, was febrile with T 101.8 �F. UA showed significant pyuria and bacteriuria. Cultures were obtained. He was bolused 1 L of resuscitative fluids. He was started on broad-spectrum antibiotics with cefepime which
was appropriate for UTI coverage. CT imaging of his abdomen and pelvis showed mild urinary bladder wall thickening with no evidence of pyelonephritis. He was admitted for further evaluation and management of sepsis secondary to UTI with suspected
prostatitis.
His dysuria resolved within 12 hours of being started on antibiotics. His leukocytosis resolved within 24 hours. He remained afebrile after being started on antibiotics. His urine cultures grew E. coli sensitive to ciprofloxacin. EKG was
obtained which showed his QTc was within normal limits at 406 ms. He will be transitioned to oral ciprofloxacin to complete a 3-week course. He has good follow-up with his primary urologist and should make an appointment with him immediately after
hospital discharge for follow-up and ongoing management. His urinary hesitancy has resolved with treatment of his acute infection. He will be continued on his home dose of tamsulosin.
Referrals:
Karina Sinclair CRNP [Family Provider] -
Jack Strange MD [Active] -
Prescriptions:
New
ciprofloxacin HCl 500 mg tablet
500 mg PO BID 21 Days Qty: 42 0RF
Continued
atorvastatin 20 mg Tablet
40 mg PO HS
metoprolol succinate 50 mg Tablet Extended Release 24 Hr
25 mg PO HS
aspirin 81 mg Tablet,Delayed Release (Dr/Ec)
81 mg PO DAILY
oxcarbazepine [Trileptal] 300 mg Tablet
300 mg PO BID
albuterol
90 mcg inhalation Q4HPRN PRN (Reason: wheeezing sob)
tamsulosin [Flomax] 0.4 mg Capsule
0.4 mg PO HS
Patient Comments:
This prescription was called in on 12/21/2024 by urology patient was unaware
Discharge Orders:
Discharge Patient (As Directed); Ordered 01/05/25
Ordered By: Raad Brown
Discharge Date and Time
Print Language: BULGARIAN
--- NOTE | 2025-01-05 14:45 | PN.CDI ---
CDI
- -
CDI:
Physician Documentation Request
Admit Date: 01/03/25 21:25
Dear Doctor Kevin,
Patient admitted for management of sepsis secondary to UTI with suspected prostatitis.
Sodium results:
Laboratory Tests
01/03/25 01/04/25 01/05/25
14:55 05:37 06:09
Sodium 131 L 131 L 133 L
Please provide a diagnosis that supports the above lab abnormalities and additional evaluation/ monitoring:
Hyponatremia
Abnormal lab value clinically insignificant
Other
Use of terms such as suspected, likely, concern for, or probable (associated with a specific diagnosis that is being evaluated, monitored, or treated as if it exists) are acceptable and can be coded in the inpatient setting, when documented at the
time of discharge.
Thank you,
Irma Jane RN, BSN
CDI Specialist
tiger text
Please use your independent medical judgment in providing your response.
== END 2025-01-05 16:51 | disposition home or self-care (01) | DRG 872 ==
LOC: 3 WEST ACU 21:25
PROVIDERS: Clinical Nurse Specialist Family Health; Emergency Medicine; ADMITTING PHYSICIAN Hospitalist; ATTENDING PHYSICIAN Internal Medicine; EMERGENCY PHYSICIAN Student in an Organized Health Care Education/Training Program; FAMILY PHYSICIAN Nurse Practitioner
DX: A41.9 Sepsis, unspecified organism (principal); N39.0 Urinary tract infection, site not specified; N41.0 Acute prostatitis; K59.00 Constipation, unspecified; I25.10 Atherosclerotic heart disease of native coronary artery without angina pectoris; I10 Essential (primary) hypertension; G40.909 Epilepsy, unspecified, not intractable, without status epilepticus; N41.3 Prostatocystitis; J45.990 Exercise induced bronchospasm; E66.811 Obesity, class 1; Z68.33 Body mass index [BMI] 33.0-33.9, adult; Z95.5 Presence of coronary angioplasty implant and graft; Z60.2 Problems related to living alone
CPT/HCPCS: 74177; 80053; 81003; 81015; 83605; 85025; 87040; 87086; 87088; 87186; 93005; 96361; 96374; 96375; 99284; G0103; Q9967

== ENCOUNTER → 2025-01-21 07:03 | Outpatient (REF) | payer OTHER, SELFPAY | LOC: REG 07:03 | PROVIDERS: ATTENDING PHYSICIAN Urology; FAMILY PHYSICIAN Nurse Practitioner | DX: N40.1 Benign prostatic hyperplasia with lower urinary tract symptoms (principal) | CPT/HCPCS: 87070 ==

== ENCOUNTER → 2025-01-28 06:34 | Outpatient (REF) | payer OTHER, SELFPAY ==
[2025-01-28 07:17] LABS: % Immature Granulocytes 0.3 % (0-0.5); % Lymphocytes 23.6 % (20.5-51.1); % Monocytes 10.4 % (1.7-9.3); % Neutrophils 59.7 % (42.2-75.2); Absolute Basophils 0.1 10^3/uL (0-0.2); Absolute Eosinophils 0.3 10^3/uL (0-0.7); Absolute Lymphocytes 1.4 10^3/uL (1.2-3.4); Absolute Monocytes 0.6 10^3/uL (0.1-0.6); Absolute Neutrophils 3.5 10^3/uL (1.4-6.5); Hematocrit 44.3 % (39.0-52.0); Hemoglobin 15.6 g/dL (13.0-18.0); Mean Corp Hgb Conc. 35.2 g/dL (33.0-37.0); Mean Corpuscular Hgb 29.9 pg (27.0-31.0); Nucleated Red Blood Cells % 0 % (-); Red Blood Cell Count 5.21 10^6/uL (4.70-6.10); Red Cell Dist. Width 13.8 % (11.5-14.5); White Blood Cell Count 5.9 10^3/uL (4.8-10.8)
[2025-01-28 07:25] LABS: NT-proBNP 45.4 pg/ml
[2025-01-28 07:30] LABS: Blood Urea Nitrogen 18 mg/dl (9-20); Calcium 9.4 mg/dl (8.4-10.2); Carbon Dioxide 29 mmol/L (22-30); Chloride 99 mmol/L (98-107); Glucose 104 mg/dl (70-99); Potassium 4.6 mmol/L (3.5-5.1); Sodium 135 mmol/L (135-145); eGFR > 60.00
[2025-01-28 07:52] LABS: Platelet Count 16 10^3/uL (130-400)
== END ==
LOC: RAD 06:34
PROVIDERS: ATTENDING PHYSICIAN Family Medicine
DX: D69.6 Thrombocytopenia, unspecified (principal); E87.1 Hypo-osmolality and hyponatremia; R06.09 Other forms of dyspnea; I25.10 Atherosclerotic heart disease of native coronary artery without angina pectoris
CPT/HCPCS: 36415; 71046; 80048; 83880; 85025

== ENCOUNTER 2025-07-19 06:42 | Emergency (ER) | payer SELFPAY ==
[2025-07-19 06:43] VITALS: BP 150/94
--- NOTE | 2025-07-19 07:34 | ED.GENMED ---
History of Present Illness
General
Chief Complaint: Back Pain
Source: patient
Time Seen by Provider: 07/19/25 07:21
History of Present Illness
History of Present Illness:
60-year-old male with past medical history of CAD status post previous ME, hypertension, hyperlipidemia presenting to the emergency department for evaluation of left-sided lower back pain that has been ongoing since Saturday, started while he was
performing squats at the gym, no relief with light stretching and OTC lidocaine patches. Patient states that he did feel a pop in his left lower back while performing the squat, history of mild pain in the past but never this prolonged. Pain goes
into the left thigh but no radicular symptoms, focal weakness or numbness, fevers or infectious symptoms, bowel or urinary incontinence, saddle anesthesia. Patient did not take anything for his pain today prior to arrival. No other concerns
presently.
Past History
Past History
ED Past Medical History: CAD, HTN, Hypercholesterolemia, ME, Seizures and Psychiatric
ED Past Surgical History: Cardiac (ME 08/2019, Stent)
Patient has exhibited threatening behavior?: No
PSI?: No
Social History
Tobacco: Non-smoker
Alcohol: None
Drug: None
Personal:
Living: alone
Employment: Employed (Teacher)
Review of Systems
Review of Systems
All Other Systems: ROS reviewed and negative except as documented in HPI and ROS
Phy Exam
Physical Exam
Physical Exam:
GENERAL: Alert , in no apparent distress
EYE: clear conjunctiva b/l
NECK: Supple
ENT: o/p clr, mmm.
BACK: Normal range of motion, mild left paralumbar tenderness, no midline bony tenderness, no rashes
NEUROLOGICAL: Alert and oriented, no focal neuro deficits. Patellar deep tendon reflexes intact and equal bilaterally, sensation grossly intact and equal to light touch bilateral lower extremities
SKIN: Warm and dry, skin intact.
MUSCULOSKELETAL: No edema, well perfused. EHL intact bilaterally
PSYCH: Normal and appropriate interaction.
Scores
Heart Failure Risk
Heart Failure Risk Score: Not Applicable
Heart Score for Chest Pain Patients
STEMI patient?: Not applicable
Withdrawal Assessment of Alcohol
Withdrawal Assessment Completed?: Not applicable
Course
Orders/Labs/Results
Orders:
Orders
07/19/25 07:34
Acetaminophen [Tylenol] 1,000 mg PO NOW STA
Lidocaine [Lidocaine 4% Patch] 1 patch TOPICAL NOW STA
Apply Lidocaine patch(s) to:: left lower back
CR Lumbar Spine Comp Min 4 Vw* Urgent
Comment:
Reason For Exam: low back pain
Vital Signs
Initial and Last Documented VS:
Initial Vital Signs
Temp Pulse Resp BP Pulse Ox
97.8 F 64 22 150/94 100
07/19/25 06:43 07/19/25 06:43 07/19/25 06:43 07/19/25 06:43 07/19/25 06:43
Last Documented Vital Signs
Temp Pulse Resp BP Pulse Ox
97.8 F 64 22 150/94 100
07/19/25 06:43 07/19/25 06:43 07/19/25 06:43 07/19/25 06:43 07/19/25 07:38
MDM/Problems Addressed
Differential Diagnosis Includes:
Lumbar strain
Disc herniation
Nerve impingement
Spinal stenosis
Compression fracture
Tendon injury
No symptoms to suggest cauda equina or emergent neurologic process
No signs or risk factors for infectious etiology
MDM/Problems Addressed:
60-year-old male presenting to the emergency department for evaluation of left-sided lower back pain that started while squatting at the gym around 1 week ago, symptoms persistent in nature, no relief with OTC lidocaine patch. Based off of the
mechanism I suspect a muscular etiology to be the most likely diagnosis. Will obtain x-ray to rule out compression fracture. Tylenol and topical lidocaine patch ordered for pain relief here. Will consider muscle relaxant and steroid taper for
home use as well as patient will likely need further outpatient management with back specialist/physical therapy for further evaluation
*Radiology
Radiology exam reviewed: preliminary read by ED provider
*Pulse Oximetry
SaO2: 100
Oxygen Mode of Delivery: Room air
Patient hypoxic: no
*Critical Care Note
Total Time (30-74mins, 75-104mins- exclusive of procedures): Not Applicable
Patient Management
Escalation/DeEscalation of care consider admission/obs:
Lumbar spine x-ray shows degenerative changes most pronounced at L4 and L5. No acute fracture. Stable for discharge home. Prescriptions for Valium and Medrol Dosepak sent to pharmacy. Encourage close follow-up with primary care provider.
ED Attending Note
-
Portions of this chart may have been created with voice recognition software.� Occasional wrong word or��sound alike� substitutions may have occurred due to the inherent limitations of voice recognition software.
Discharge Plan
Departure
Patient Disposition: Home (Routine Discharge)
Date of Disposition: 07/19/25
Time of Disposition: 08:59
Patient with high blood pressure during this ER visit?: Yes
Discharge Problem:
Low back pain
Instructions: Low Back Pain (DC)
Prescriptions:
New
diazepam [Valium] 5 mg tablet
5 mg PO BID PRN (Reason: muscle spasm) Qty: 10 0RF
methylprednisolone [Medrol (Shyam)] 4 mg tablets,dose pack
4 mg PO DIRECTED Qty: 21 0RF
No Action
atorvastatin 20 mg Tablet
40 mg PO HS
metoprolol succinate 50 mg Tablet Extended Release 24 Hr
25 mg PO HS
aspirin 81 mg Tablet,Delayed Release (Dr/Ec)
81 mg PO DAILY
oxcarbazepine [Trileptal] 300 mg Tablet
300 mg PO BID
albuterol
90 mcg inhalation Q4HPRN PRN (Reason: wheeezing sob)
tamsulosin [Flomax] 0.4 mg Capsule
0.4 mg PO HS
Patient Comments:
This prescription was called in on 12/21/2024 by urology patient was unaware
ciprofloxacin HCl 500 mg tablet
500 mg PO BID 21 Days Qty: 42 0RF
Referrals:
Karina Sinclair CRNP [Family Provider, Family Practice]
Stand Alone Forms: Return to Work
Interventions
Interventions:
*Risk Screen - Suicide Last Done: 07/19/25 07:30
*General Assessment Last Done: 07/19/25 07:30
*Neglect/Abuse Screening Last Done: 07/19/25 07:30
*ED- Fall Risk Assessment Last Done: 07/19/25 07:30
*ED COVID-19 Vaccine History Last Done: 07/19/25 07:30
*ED Influenza Vaccine History Last Done: 07/19/25 07:30
*Nursing Disposition Last Done: 07/19/25 09:40
ED-Musculoskeletal Assessment Last Done: 07/19/25 07:30
Discharge Date and Time
Discharge Date/Time: 07/19/25 09:45
Print Language: ZAMBIAN
[2025-07-19] MEDS: LIDOCAINE 4% PATCH 1 PATCH TOPICAL (08:00)
[2025-07-19] MEDS: TYLENOL 1000 MG PO (08:00)
[2025-07-19 08:04] VITALS: BMI 32.0
== END 2025-07-19 09:45 | disposition home or self-care (01) ==
LOC: EMR 06:42
PROVIDERS: EMERGENCY PHYSICIAN Emergency Medicine; FAMILY PHYSICIAN Nurse Practitioner
DX: M54.50 Low back pain, unspecified (principal); M47.816 Spondylosis without myelopathy or radiculopathy, lumbar region; I25.10 Atherosclerotic heart disease of native coronary artery without angina pectoris; I10 Essential (primary) hypertension; E78.00 Pure hypercholesterolemia, unspecified; I25.2 Old myocardial infarction; Z79.82 Long term (current) use of aspirin; Z95.5 Presence of coronary angioplasty implant and graft
CPT/HCPCS: 99283; 72110